=== PATIENT | male | born 1980 | race Hispanic/Latino ===

== ENCOUNTER 2019-08-11 09:10 | Emergency (ER) | payer BC, SELFPAY ==
--- NOTE | ~2019-08-11 | XR_ITS ---
XR abdomen/kub 1V 08/11/2019 13:00 INDICATION: Left-sided flank pain TECHNIQUE: KUB COMPARISON: CT dated 08/11/2019 FINDINGS: Bowel gas pattern is normal. There is no evidence of free air, mass, organomegaly, ascites or obstruction. No abnormal calculi are seen. The bones appear intact. IMPRESSION: 1: No acute abdominal abnormality identified. Reviewed, dictated and finalized at location A.
--- NOTE | ~2019-08-11 | CT_ITS ---
EXAMINATION: CT abdomen pelvis wo con DATE: 08/11/2019 10:24 INDICATION: Left flank pain TECHNIQUE: Computed tomography (CT) of the abdomen and pelvis was performed without intravenous contr ast. The dose-length product was 282.06 mGy-cm. Automated exposure control and iterative reconstructi on technique were employed. COMPARISON: None. FINDINGS: Lung bases are unremarkable. Heart size normal. No significant pleural or pericardial effus ion. Study slightly limited by motion artifact. There are proximal left ureteral stones with mild hyd ronephrosis. The liver, spleen, pancreas, adrenal glands and right kidney are unremarkable. Gallbladder is present . Nonobstructive bowel gas pattern. There is fluid in the inguinal canals, suspicious for hydroceles. No abnormal pelvic masses or fluid collections. Colonic diverticulosis without evidence for divertic ulitis. IMPRESSION: 1. Nonobstructing proximal left ureteral stone/s with mild hydronephrosis. 2: Possible bilateral hydroceles. Reviewed, dictated and finalized at location A.
[2019-08-11 09:30] VITALS: BP 156/90; PULSE 66; RESP 18; TEMP 36.6; O2SAT 100
[2019-08-11 09:40] LABS: Basophils Absolute Auto 0.1 K/mm3 (0.0-0.1); Basophils Percent Auto 0.7 % (0.2-1.2); Eosinophils Absolute Auto 0.1 K/mm3 (0-0.3); Eosinophils Percent Auto 0.7 % (0-4.4); Hematocrit 46.7 % (42.0-52.0); Hemoglobin 16.5 g/dL (14.0-18.0); Immature Granulocyte Absolute 0.02 K/mm3 (0.00-0.031); Immature Granulocyte Percent A 0.2 % (0-0.5); Lymphocytes Absolute Auto 2.04 K/mm3 (0.9-3.2); Lymphocytes Percent Auto 20.9 % (18.3-44.2); Mean Corpuscular HGB Conc 35.3 g/dl (32-36); Mean Corpuscular Hemoglobin 30.7 pg (26-34); Mean Corpuscular Volume 86.8 fl (80-100); Mean Platelet Volume 10.5 fl (7.4-10.4); Monocytes Absolute Auto 0.6 K/mm3 (0.1-0.6); Monocytes Percent Auto 6.6 % (2.6-8.5); Neutrophils Absolute Auto 6.9 K/mm3 (1.3-6.7); Neutrophils Percent Auto 70.9 % (45.5-73.1); Platelet Count Result 197 k/mm3 (150-375); Red Blood Count 5.38 M/mm3 (4.6-6.20); Red Cell Distribution Width 12.3 % (11.5-14.5); White Blood Count 9.7 K/mm3 (4.5-10.0)
[2019-08-11 09:50] LABS: Blood Urea Nitrogen 15 mg/dL (9-20); Calcium 8.8 mg/dL (8.4-10.2); Carbon Dioxide 26 mmol/L (22-30); Chloride 104 mmol/L (98-107); Estimated CRCL calculation 76 ml/min; Estimated Glomerular Filt Rate > 60; Glucose 161 mg/dL (75-110); Potassium 3.3 mmol/L (3.4-5.0); Sodium 139 mmol/L (137-145)
--- NOTE | 2019-08-11 09:56 | ED.GENADULT ---
HPI - General Adult General Chief complaint: Unspecified Stated complaint: flank pain Time Seen by Provider: 08/11/19 09:47 History of Present Illness HPI narrative: Patient is a 38 y/o male complaining of pressure-like left flank pain starting approximately 3 hours ago. He rate his pain as 10/10 and it radiates to his left groin. There is no alleviating or exacerbating factor. He has nausea, vomiting but no diarrhea. He has no dysuria, but has some blood in urine. Related Data Home Medications Medication Instructions Recorded Confirmed No Home Medications 08/11/19 08/11/19 Allergies Allergy/AdvReac Type Severity Reaction Status Date / Time No Known Allergies Allergy Verified 08/11/19 09:34 Review of Systems Constitutional: Constitutional: Denies chills, Denies fever(s), Denies headache(s) and Denies weakness Eyes: Eyes: Denies blurry vision ENT: Denies headache(s) and Denies neck pain Cardiovascular: Cardiovascular: Denies chest pain and Denies dyspnea Respiratory: Respiratory: Denies cough and Denies dyspnea Gastrointestinal: Gastrointestinal: Denies abdominal pain, Denies diarrhea, Denies nausea and Denies vomiting Genitourinary: Genitourinary: Reports hematuria, Denies dysuria, Reports flank pain and Reports urinary incontinence Musculoskeletal: Musculoskeletal: Denies back pain and Denies neck pain Neurologic: Denies headache(s) and Denies weakness PMFSH Social History Social History Gender identity (if verbalized by the patient): Male Exam Const: General: no acute distress and well developed Orientation/consciousness: oriented to person, oriented to place, oriented to time and patient oriented x3 HENMT: Head: normocephalic Ears: external ears normal General nose exam: Normal external nose present Eyes: General: appearance normal, both eyes and all related structures Conjunctivae: conjunctivae normal Neck: Neck: normal visual inspection and full ROM Chest: Chest palpation & inspection: normal inspection of the chest and no tenderness Resp: Effort & Inspection: normal respiratory effort Auscultation: clear to auscultation bilaterally Cardio: Rate: regular rate Rhythm: regular rhythm GI: GI Palp: No abdominal tenderness and Yes Soft to palpation Skin: General skin exam: normal color and turgor normal Neuro: General: oriented to person, oriented to place, oriented to time and patient oriented x3 Cognition (Neuro): normal cognition Extrem: General: normal to inspection, full ROM and no pedal edema Psych: Appearance: grossly normal Mental Status: mental status grossly normal Affect: normal affect Course Vital Signs Vital signs: Vital Signs Temperature 36.6 C 08/11/19 09:30 Pulse Rate 66 08/11/19 09:30 Respiratory Rate 18 08/11/19 09:30 Blood Pressure 156/90 H 08/11/19 09:30 Pulse Oximetry 100 08/11/19 09:30 Temperature 36.6 C 08/11/19 09:30 Pulse Rate 88 08/11/19 13:56 Respiratory Rate 16 08/11/19 13:56 Blood Pressure 138/77 08/11/19 13:56 Pulse Oximetry 100 08/11/19 13:56 Medical Decision Making Vital Signs Vital Signs: Vital Signs Temperature 36.6 C 08/11/19 09:30 Pulse Rate 66 08/11/19 09:30 Respiratory Rate 18 08/11/19 09:30 Blood Pressure 156/90 H 08/11/19 09:30 Pulse Oximetry 08/11/19 09:30 Temperature 36.6 C 08/11/19 09:30 Pulse Rate 88 08/11/19 13:56 Respiratory Rate 16 08/11/19 13:56 Blood Pressure 138/77 08/11/19 13:56 Pulse Oximetry 100 08/11/19 13:56 Lab Data Result diagrams: 08/11/19 09:27 08/11/19 09:27 Labs: Lab Results 08/11/19 08/11/19 08/11/19 Range/Units 09:27 09:27 09:51 WBC 9.7 (4.5-10.0) K/mm3 RBC 5.38 (4.6-6.20) M/mm3 Hgb 16.5 (14.0-18.0) g/dL Hct 46.7 (42.0-52.0) % MCV 86.8 (80-100) fl MCH 30.7 (26-34) pg MCHC 35.3 (32-36) g/dl RDW
[2019-08-11 10:04] LABS: Add Urine Microscopic? YES; Appearance Urine Cloudy (Clear); Bilirubin Urine Negative (Negative); Blood Urine 3+ (Negative); Budding Yeast Urine Present /hpf; Color Urine Red (Yellow); Glucose Urine UA Negative (Negative); Ketones Urine Negative (Negative); Leukocyte Esterase Ur Negative LEU/UL (Negative); Mucus Urine Rare /lpf; Nitrate Urine Negative (Negative); Protein Urine 2+ mg/dL (Negative); RBC Urine >75 /hpf (0-2); Specific Grav Ur 1.025 (1.001-1.035); Urobilinogen Urine Negative mg/dL (<2.0)
[2019-08-11] MEDS: SODIUM CHLORIDE 0.9% IV 1,000 ML 999 ML IV CONT (10:05)
[2019-08-11] MEDS: ONDANSETRON INJ 4 MG/2 ML VIAL IV PUSH (10:06)
[2019-08-11] MEDS: POTASSIUM CHLORIDE 20 MEQ TABLET PO (10:06)
[2019-08-11] MEDS: MORPHINE SULFATE 4 MG/ML INJ IV PUSH (10:06)
[2019-08-11] MEDS: KETOROLAC 30 MG/ML VIAL (*BKC) IV PUSH (10:55)
[2019-08-11 13:56] VITALS: BP 138/77; PULSE 88; RESP 16; O2SAT 100
== END 2019-08-11 14:00 | disposition home or self-care (01) ==
PROVIDERS: Emergency Provider Emergency Medicine
DX: N13.2 Hydronephrosis with renal and ureteral calculous obstruction (principal)
CPT/HCPCS: 36415; 74018; 74176; 80048; 81001; 85025; 96361; 96374; 96375; 99284; A9270; J1885; J2270; J2405; J7030